=== PATIENT | female | born 1995 | race Caucasian/White ===

== ENCOUNTER 2016-12-05 13:28 | Emergency (ER) | payer BC ==
[2016-12-05] MEDS ORDERED: EPINEPHrine 1:1000 1 MG/ML SDV IM ONE (13:57)
[2016-12-05] MEDS ORDERED: predniSONE 10 MG Tab PO ONE (13:57)
[2016-12-05] MEDS ORDERED: Famotidine 20 MG/2 ML SDV IVPUSH ONE (13:58)
[2016-12-05] MEDS ORDERED: diphenhydrAMINE 50 MG/ML SDV IVPUSH ONE (14:01)
--- NOTE | 2016-12-05 14:02 | EDM.PDOC ---
ED HPI GENERAL MEDICAL PROBLEM - General Chief Complaint: Allergic Reaction Stated Complaint: ALLERGIC REACTION Time Seen by Provider: 12/05/16 13:50 Source of Information: Reports: Patient History Limitations: Reports: No Limitations - History of Present Illness INITIAL COMMENTS - FREE TEXT/NARRATIVE: Patient is a 21-year-old female who presents to ED with concerns of having a allergic reaction to peanut ingestion. 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 Patient received epi and Benadryl while in the ED. Last occurrence was approximately 2 years ago. She's never been intubated or hospitalized for this. States this afternoon just prior to arrival she accidentally ate a cookie containing peanuts. Developed tingling to her tongue and soreness to her throat. She had no sensation to her throat was closing or having difficulty swallowing. States she has a history of anxiety and is having a hard time differentiating shortness of breath associated with anxiety or with the anaphylactic reaction. Patient is worried. Patient denies fever/chills, chest pain, nausea/vomiting, abdominal pain, dizziness, presyncope or syncopal episodes, or any additional complaints. Past history: Anxiety, depression, OCD Current medications: EpiPen Surgical history cholecystectomy,appendectomy, tonsillectomy, and wisdom teeth out. Onset: Today, Sudden Duration: Getting Worse Associated Symptoms: Reports: Shortness of Breath Treatments CASHIER CREDIT: Reports: Other (see below) (nonestated) Head Pain Score (Numeric/FACES): 2 - Related Data Allergies Allergy/AdvReac Type Severity Reaction Status Date / Time peanut Allergy Anaphylactic Verified 12/05/16 13:39 Shock Penicillins Allergy Hives Verified 12/05/16 13:39 Home Meds: Home Meds . [No Known Home Meds] 12/05/16 [History] Past Medical History Psychiatric History: Reports: Anxiety, Depression, OCD - Past Surgical History GI Surgical History: Reports: Cholecystectomy Social & Family History - Tobacco Use Smoking Status *Q: Current Every Day Smoker Years of Tobacco use: 1 Packs/Tins Daily: 0.5 - Caffeine Use Caffeine Use: Reports: None - Recreational Drug Use Recreational Drug Use: No ED ROS ALLERGIC REACTION - Review of Systems Review Of Systems: ROS reveals no pertinent complaints other than HPI. ED EXAM GENERAL NO PERIP PULSE - Physical Exam Exam: See Below Exam Limited By: No Limitations General Appearance: Alert, WD/WN, Mild Distress Eye Exam: Bilateral Eye: PERRL Ears: Hearing Grossly Normal Nose: Normal Inspection Throat/Mouth: Normal Inspection, Normal Oropharynx, Normal Voice, No Airway Compromise Head: Atraumatic, Normocephalic Neck: Normal Inspection, Supple, Non-Tender, Full Range of Motion. No: Lymphadenopathy (L), Lymphadenopathy (R) Respiratory/Chest: No Respiratory Distress, Lungs Clear, Normal Breath Sounds, No Accessory Muscle Use, Chest Non-Tender Cardiovascular: Normal Peripheral Pulses, No Murmur, Tachycardia GI/Abdominal: Normal Bowel Sounds, Soft, Non-Tender, No Organomegaly, No Distention, No Mass Extremities: Normal Inspection, Normal Capillary Refill Neurological: Alert, Oriented, CN II-XII Intact, Normal Cognition, Normal Gait, No Motor/Sensory Deficits Psychiatric: Normal Affect, Anxious Skin Exam: Warm, Dry, Intact, Normal Color, No Rash Course - Vital Signs Last Recorded V/S: Last Vital Signs Temp 98.2 F 12/05/16 13:36 Pulse 103 H 12/05/16 13:36 Resp 18 12/05/16 13:36 BP 134/93 H 12/05/16 13:36 Pulse Ox 98 12/05/16 13:36 - Orders/Labs/Meds Meds: Medications Discontinued Medications Generic Name Dose Route Start Last Admin Trade Name Ramiro PRN Reason Stop Dose Admin Diphenhydramine HCl 50 mg 12/05/16 14:01 12/05/16 14:21 Benadryl IVPUSH 12/05/16 14:02 50 mg ONETIME ONE Administration Epinephrine HCl 0.3 mg 12/05/16 13:57 12/05/16 14:24 Adrenalin 1:1000 IM 12/05/16 13:58 0.3 mg ONETIME ONE Administration Famotidine 40 mg 12/05/16 13:58 12/05/16 14:26 Pepcid IVPUSH 12/05/16 13:59 40 mg ONETIME ONE Administration Prednisone 40 mg 12/05/16 13:57 12/05/16 14:28 Prednisone PO 12/05/16 13:58 40 mg ONETIME ONE Administration - Re-Assessments/Exams Free Text/Narrative Re-Assessment/Exam: 12/05/16 14:01 patient has a history of anaphylaxis secondary from an ingestion with similar symptoms. She states that this progressively get worse over the next half hour to hour. She's had appendectomy in the past. She is short of breath and feels her throat is hurting. Ordered epi 0.3 mg IM, Benadryl 50 mg IV, Pepcid 40 mg IV, and prednisone 40 mg p.o. 12/05/16 14:50 Patient got up to go to the bathroom. States her symptoms are improving. She is shaky after receiving the epi. 12/05/16 15:40 Reassessment, patient asleep in bed. It has been almost 3 hrs since ingestion. Will wait to 1600 hrs and reassess. At that point if no symptoms she would like to be discharged. 12/05/16 16:22 The patient continues to have no complaints. She wishes to be discharged home. Discharge instructions as documented Departure - Departure Time of Disposition: 16:41 Disposition: Home, Self-Care 01 Condition: good Clinical Impression: Allergic reaction Qualifiers: Encounter type: initial encounter Qualified Code(s): T78.40XA - Allergy, unspecified, initial encounter - Discharge Information Instructions: Anaphylactic Reaction Referrals: PCP,None [Primary Care Provider] - Michael Sidhu PA-C [Physician Graphics Software Engineer] - Forms: ED Department Discharge, Return to Work/School Form Additional Instructions: As discussed if you develop difficulty breathing, difficulty swallowing, dizziness, chest pain,or sensation throat is closing please utilize EpiPen as instructed by manufacture. Take Benadryl 50 mg p.o. Call 911 and be transported to the closest ER for further evaluation and treatment.
[2016-12-05 16:57] VITALS: BP 121/77
== END 2016-12-05 16:52 | disposition home or self-care (01) ==
LOC: JD.ED 13:28
DX: R20.2 Paresthesia of skin (principal); T78.1XXA Other adverse food reactions, not elsewhere classified, initial encounter; F17.210 Nicotine dependence, cigarettes, uncomplicated; Z90.49 Acquired absence of other specified parts of digestive tract; Z98.890 Other specified postprocedural states; Z88.0 Allergy status to penicillin; Z91.010 Allergy to peanuts
CPT/HCPCS: 96372; 96374; 96375; 99283; A9270; J0171; J1200; 99284

== ENCOUNTER 2017-01-02 23:33 | Emergency (ER) | payer BC ==
[2017-01-02 23:45] VITALS: BP 144/81
[2017-01-02] MEDS ORDERED: Dextrose 5%-0.9% NaCl 1,000 ML IV SCH (23:45)
[2017-01-03] MEDS ORDERED: HYDROmorphone 0.5 MG/0.5 ML Syringe IVPUSH ONE (00:01)
[2017-01-03] MEDS ORDERED: Metoclopramide 10 MG/2 ML SDV IVPUSH ONE (00:01)
--- NOTE | 2017-01-03 00:04 | EDM.PDOC ---
ED HPI GENERAL MEDICAL PROBLEM - General Chief Complaint: Abdominal Pain Stated Complaint: DIZZY/VOMITING/ABDOMINAL PAIN Time Seen by Provider: 01/02/17 23:58 Source of Information: Reports: Patient History Limitations: Reports: No Limitations - History of Present Illness INITIAL COMMENTS - FREE TEXT/NARRATIVE: 21-year-old female presents to the ED with a 3 day history of nausea vomiting and diarrhea. She believes she is eating similarly to her friends and none of them are ill. She works for the [employer] and is currently camping out. Has been able to keep down any solid foods and minimal oral fluids for the last 3 days. Diarrheas approximate 5-6 times per day and is fairly large-volume fluid loss without blood. Currently menstruating and menses is quite heavy or heavier than normal for her. Diffuse low back pain diffuse cramping. Lightheaded dizzy with standing. Has chills but no defined fever. No clear-cut history to suggest foodborne illness. Onset: Gradual Onset Date: 12/31/16 Duration: Day(s):, Constant, Getting Worse Location: Reports: Generalized Quality: Reports: Ache (Particularly low back.) Severity: Moderate Improves with: Reports: None Worsens with: Reports: Other Context: Denies: Activity, Exercise (Trying to eat or drink.), Lifting, Sick Contact, Trauma, Other Associated Symptoms: Reports: Fever/Chills, Loss of Appetite, Malaise, Nausea/ Vomiting, Weakness (Intractable for 3 days.), Other ( Generalized. diarrhea usually 5-6 loose watery stools per day without blood ). Denies: Confusion, Chest Pain, Cough, cough w sputum, Diaphoresis, Headaches, Rash (Chills but no fever), Seizure, Shortness of Breath, Syncope Treatments MANAGER PHOTOGRAPHY: Reports: NSAIDS Lower Abdominal Pain Score (Numeric/FACES): 6 - Related Data Allergies Allergy/AdvReac Type Severity Reaction Status Date / Time peanut Allergy Anaphylactic Verified 01/02/17 23:45 Shock Penicillins Allergy Hives Verified 01/02/17 23:45 Home Meds: Home Meds Dicyclomine [Bentyl] 20 mg PO Q6H PRN #6 tablet 01/03/17 [Rx] Ondansetron [Zofran ODT] 4 mg PO Q6H #6 tab.dis 01/03/17 [Rx] Past Medical History Psychiatric History: Reports: Anxiety, Depression, OCD - Past Surgical History HEENT Surgical History: Reports: Oral Surgery, Tonsillectomy GI Surgical History: Reports: Appendectomy, Cholecystectomy Social & Family History - Tobacco Use Smoking Status *Q: Current Every Day Smoker Years of Tobacco use: 2 Packs/Tins Daily: 0.5 - Caffeine Use Caffeine Use: Reports: None - Recreational Drug Use Recreational Drug Use: No - Living Situation & Occupation Living situation: Reports: Single Occupation: Employed ED ROS GENERAL - Review of Systems Review Of Systems: See Below Constitutional: Reports: Chills, Malaise, Weakness, Fatigue, Decreased Appetite , Weight Loss. Denies: Fever HEENT: Reports: Other Respiratory: Reports: No Symptoms (Dry mouth and tongue.) Cardiovascular: Reports: No Symptoms Endocrine: Reports: No Symptoms GI/Abdominal: Reports: Abdominal Pain (Intermittent abdominal cramping pain. Associated cramping related to menses as well.), Anorexia, Diarrhea, Decreased Appetite, Nausea, Vomiting (Intractable nausea and vomiting 3 days. Emesis is primarily bilious without blood.). Denies: Hematochezia (Loose watery stools partially 5-6 per day without blood) : Reports: Other (Cramping due to menses. Menstrual cycle is on time but is much heavier than normal.) Musculoskeletal: Reports: No Symptoms Skin: Reports: No Symptoms Neurological: Reports: No Symptoms Psychiatric: Reports: No Symptoms Hematologic/Lymphatic: Reports: No Symptoms Immunologic: Reports: No Symptoms ED EXAM, GI/ABD - Physical Exam Exam: See Below Exam Limited By: No Limitations General Appearance: Alert, WD/WN, No Apparent Distress, Other (Smells of campfire smoke.) Eyes: Bilateral: Normal Appearance (No jaundice.) Ears: Normal External Exam Throat/Mouth: Other (Tongue is mildly dry and coated) Head: Atraumatic, Normocephalic Neck: Normal Inspection, Supple, Non-Tender, Full Range of Motion. No: Lymphadenopathy (L), Lymphadenopathy (R) Respiratory/Chest: No Respiratory Distress, Lungs Clear, Normal Breath Sounds, No Accessory Muscle Use, Chest Non-Tender, Respiratory Distress Cardiovascular: Normal Peripheral Pulses, No Edema, No Gallop (Mild tachycardia at rest 105-1 10/m), No Murmur, No Rub, Tachycardia GI/Abdominal: Soft, Hypoactive Bowel Sounds, Tenderness. No: Guarding, Rebound (Mild tenderness right hemiabdomen. No guarding rebound or rigidity.), Rigidity , Hepatomegaly, Splenomegaly Back Exam: Normal Inspection, Full Range of Motion. No: CVA Tenderness (L), CVA Tenderness (R) Extremities: Normal Inspection, Normal Range of Motion, Non-Tender, No Pedal Edema, Normal Capillary Refill Neurological: Alert, Oriented, CN II-XII Intact, Normal Cognition, Normal Gait, Normal Reflexes Psychiatric: Normal Affect, Normal Mood Skin Exam: Warm, Dry, Intact, Normal Color, No Rash Course - Vital Signs Last Recorded V/S: Last Vital Signs Temp 36.3 C 01/02/17 23:41 Pulse 105 H 01/02/17 23:41 Resp 16 01/02/17 23:41 BP 144/81 H 01/02/17 23:41 Pulse Ox 98 01/02/17 23:41 - Orders/Labs/Meds Labs: Laboratory Tests 01/03/17 01/03/17 01/03/17 Range/Units 00:10 00:10 00:10 WBC 9.73 (3.98-10.04) K/mm3 RBC 4.17 (3.98-5.22) M/mm3 Hgb 12.6 (11.2-15.7) gm/L Hct 36.8 (34.1-44.9) % MCV 88.2 (79.4-94.8) fl MCH 30.2 (25.6-32.2) pg MCHC 34.2 (32.2-35.5) g/dl RDW Std Deviation 41.3 (36.4-46.3) fL Plt Count 440 H (182-369) K/mm3 MPV 8.9 L (9.4-12.3) fl Neutrophils % (Manual) 58 (40-60) % Band Neutrophils % 0 (0-10) % Lymphocytes % (Manual) 32 (20-40) % Atypical Lymphs % 0 % Monocytes % (Manual) 9 (2-10) % Eosinophils % (Manual) 1 (0.7-5.8) % Basophils % (Manual) 0 L (0.1-1.2) Platelet Estimate Adequate Plt Morphology Comment Normal RBC Morph Comment Normal Sodium 141 (136-145) mEq/L Potassium 3.6 (3.5-5.1) mEq/L Chloride 107 (98-107) mEq/L Carbon Dioxide 24 (21-32) mEq/L Anion Gap 13.6 (5-15) BUN 12 (7-18) mg/dL Creatinine 0.9 (0.55-1.02) mg/dL Est Cr Clr Drug Dosing 98.91 mL/min Estimated GFR (MDRD) > 60 (>60) mL/min BUN/Creatinine Ratio 13.3 L (14-18) Glucose 107 H (74-106) mg/dL Calcium 9.0 (8.5-10.1) mg/dL Total Bilirubin 0.1 L (0.2-1.0) mg/dL AST 13 L (15-37) U/L ALT 26 (14-59) U/L Alkaline Phosphatase 63 (46-116) U/L C-Reactive Protein 1.3 H* (<1.0) mg/dL Total Protein 7.0 (6.4-8.2) g/dl Albumin 3.8 (3.4-5.0) g/dl Globulin 3.2 gm/dL Albumin/Globulin Ratio 1.2 (1-2) Lipase 87 (73-393) U/L HCG, Qual Negative (NEGATIVE) Meds: Medications Discontinued Medications Generic Name Dose Route Start Last Admin Trade Name Ramiro PRN Reason Stop Dose Admin Dicyclomine HCl 20 mg 01/03/17 01:29 01/03/17 01:34 Bentyl PO 01/03/17 01:30 20 mg ONETIME ONE Administration Hydromorphone HCl 0.5 mg 01/03/17 00:01 01/03/17 00:10 Dilaudid IVPUSH 01/03/17 00:02 0.5 mg ONETIME ONE Administration Dextrose/Sodium Chloride 1,000 mls @ 999 mls/hr 01/02/17 23:45 01/03/17 00:08 Dextrose 5%-Normal Saline IV 999 mls/hr ASDIRECTED ALEJANDRO Administration Ketorolac Tromethamine 30 mg 01/03/17 00:15 01/03/17 00:13 Toradol IVPUSH 30 mg ONETIME ALEJANDRO Administration Metoclopramide HCl 10 mg 01/03/17 00:01 01/03/17 00:09 Reglan IVPUSH 01/03/17 00:02 10 mg ONETIME ONE Administration - Radiology Interpretation Free Text/Narrative:: 21-year-old female arrives in the ED after a reported history of 3 days of intractable nausea vomiting and loose watery stools 5 or 6 per day. No one else is sick in her group of friends. She is currently working for the [employer]. She is currently camping. Associated dysmenorrhea from heavy. As well causing significant low back pain. Nothing much will stay down. She is very dizzy and lightheaded with standing with diffuse low back pain. She appears volume depleted. Plan IV D5 normal saline at open. Given Reglan 10 mg IV with Toradol 30 mg IV and Dilaudid 0.5 mg IV for pain and nausea relief. Stool becomes available will be assessed for white blood cells and culture. Urinalysis as well. Routine labs including test to be done. - Re-Assessments/Exams Free Text/Narrative Re-Assessment/Exam: 01/03/17 01:29 patient is feeling better after completing a liter of IV fluids. Labs are back revealing a normal white count at 9.73 with 58% neutrophils and no bands hemoglobin is 12.6 hematocrit is 36.8. Platelets are mildly elevated at 440,000. Chemistry is essentially normal including an anion gap of 13.6 bicarbonate of 24 and a potassium of 3.6. Creatinine is 0.9 CRP minimally elevated at 1.3 lipase is normal at 87. She'll therefore be discharged home on Zofran 4 mg sublingual every 4-6 hours when necessary as needed for relief of nausea. Clear fluid diet and to avoid all dairy products and no apple or grape juice until stools are formed backup Bentyl 20 mg by mouth every 6 hours as needed for relief of abdominal cramping pain. She'll be going back to her bunk and in [place]. Departure - Departure Time of Disposition: 01:31 Disposition: Home, Self-Care 01 Condition: Fair Clinical Impression: Gastroenteritis - Discharge Information Prescriptions: Dicyclomine [Bentyl] 20 mg PO Q6H PRN #6 tablet PRN Reason: Abdominal cramps Ondansetron [Zofran ODT] 4 mg PO Q6H #6 tab.dis Instructions: Viral Gastroenteritis, Adult Referrals: PCP,None [Primary Care Provider] - Forms: ED Department Discharge Additional Instructions: Evaluation in the emergency room tonight in regards to persistent nausea vomiting and diarrhea for the last 3 days. This created some degree of dehydration but not severe. Electrolytes remained within normal limits. You're treated with a liter of IV fluids while in the ED as well as medications Reglan 10 mg for relief of nausea and vomiting and Dilaudid 0.5 for relief of abdominal pain. Ms. to use Zofran 4 mg under the tongue every 4-6 hours necessary for nausea or vomiting relief. Clear fluid diet such as Gatorade or Powerade her ideal and one stomach is feeling better may try crackers first if tolerated then advance to broth soup or turkey rice turkey noodle etc. After this made to toast hard-boiled egg, poached eggs ,toast etc. no dairy products and no apple juice or grape juice until stools are formed back up. If not markedly improved in 36 hours time should be seen in review for stool sampling.
[2017-01-03] MEDS ORDERED: Ketorolac 30 MG/ML SDV IVPUSH SCH (00:15)
[2017-01-03] MEDS ORDERED: Dicyclomine 10 MG Cap PO ONE (01:29)
== END 2017-01-03 01:43 | disposition home or self-care (01) ==
LOC: JD.ED 23:33
DX: K52.9 Noninfective gastroenteritis and colitis, unspecified (principal); F17.210 Nicotine dependence, cigarettes, uncomplicated; Z88.0 Allergy status to penicillin; Z91.010 Allergy to peanuts
CPT/HCPCS: 36415; 80053; 83690; 84703; 85025; 86140; 96361; 96374; 96375; 99284; A9270; J1170; J1885; J2765; J7042